=== PATIENT | male | born 1990 | race Caucasian/White ===

== ENCOUNTER 2016-11-12 11:11 | Emergency (ER) | payer SELFPAY ==
--- NOTE | 2016-11-12 11:23 | ERNOTE ---
Integumentary HPI - Narrative Date of Service: 11/12/16 - General Presenting Symptoms: insect bite Time Seen by Provider: 11/12/16 11:14 Source: patient Exam Limitations: no limitations - Immun/Allergies/Home Medications Allergies/Adverse Reactions: Allergies Allergy/AdvReac Type Severity Reaction Status Date / Time No Known Allergies Allergy Verified 08/23/12 08:24 Home Medications: HOME MEDICATIONS Sulfamethoxazole/Trimethoprim [Bactrim Ds] 1 tab PO BID #28 tab 11/12/16 [Last Taken Unknown] - History of Present Illness Narrative: Pt. comes in with c/o insect bites to L inner arm for two days. Pt. states that wound is getting more red and is painful. Pt. states that he took Benadryl for this without relief. Pt. denies any fevers, SOB, CP, NVD, numbness or tingling. Review of Systems - Review of Systems Constitutional: Present: no symptoms reported. Absent: recent illness, fever, chills, weakness, fatigue, malaise EYE: Present: no symptoms reported ENT: Present: no symptoms reported Respiratory: Present: no symptoms reported. Absent: shortness of breath, cough , wheezing Cardiology: Present: no symptoms reported. Absent: chest pain, palpitations, edema Gastrointestinal/Abdominal: Present: no symptoms reported. Absent: nausea, vomiting, diarrhea Genitourinary: Present: no symptoms reported Musculoskeletal: Present: no symptoms reported. Absent: back pain, joint pain Skin: Present: other - two insect bites inner anticubital space Neurological: Present: no symptoms reported. Absent: headache, dizziness/light- headedness, numbness, tingling All Other Systems: All systems neg except as marked - Patient's Past Medical History Patient History - Medical: No pertinent hx Physical Exam - Physical Exam General Appearance: Present: wd/wn, alert, no apparent distress Head Exam: Present: normal inspection, no evidence of injury Eye Exam: Normal inspection: bilateral Ears, Nose, Throat: Present: normal ENT inspection. Absent: pharyngeal swelling , tonsillar swelling Neck: Present: normal inspection, nontender. Absent: lymphadenopathy (R), lymphadenopathy (L) Respiratory: Present: no respiratory distress, normal breath sounds, no accessory muscle use, chest nontender, lungs clear Cardiovascular/Chest: Present: regular rate, rhythm, no murmur, normal peripheral pulses Extremity Exam: Present: normal range of motion, other - L anticubital space with erythema and edema surrounding Neurological Exam: Present: alert, oriented, normal mood/affect, no motor/ sensory deficits Skin Exam: Present: normal color, warm/dry, other - see above. Absent: pallor, skin rash ED Progress - Vital Signs Patient's Vital Signs:: I have reviewed the patient's vital signs. Departure Clinical Impression: Brown recluse spider bite Qualifiers: Encounter type: initial encounter Injury intent: accidental or unintentional Qualified Code(s): T63.331A - Toxic effect of venom of brown trevorluse spider, accidental (unintentional), initial encounter - Departure Disposition: Home self-care Condition: Good Instructions: Brown Recluse Spider Bite, [id number] Additional Instructions: Please follow up with primary provider in 2-3 days if not improved. Prescriptions: Sulfamethoxazole/Trimethoprim [Bactrim Ds] 1 tab PO BID #28 tab
[2016-11-12 11:53] VITALS: BP 140/84
== END 2016-11-12 11:48 | disposition home or self-care (01) ==
LOC: ER 11:11
DX: T63.331A Toxic effect of venom of brown recluse spider, accidental (unintentional), initial encounter (principal)

== ENCOUNTER 2016-11-13 13:36 | Emergency (ER) | payer SELFPAY ==
[2016-11-13 13:53] VITALS: BP 163/84
--- NOTE | 2016-11-13 14:16 | ERNOTE ---
Integumentary HPI - Narrative Date of Service: 11/13/16 - General Presenting Symptoms: insect bite Time Seen by Provider: 11/13/16 13:49 Source: patient Exam Limitations: no limitations - Immun/Allergies/Home Medications Immunizations: IMMUNIZATION HX Immunizations Up to Date Yes History of Influenza Vaccine No Allergies/Adverse Reactions: Allergies Allergy/AdvReac Type Severity Reaction Status Date / Time No Known Allergies Allergy Verified 11/13/16 13:54 Home Medications: HOME MEDICATIONS Sulfamethoxazole/Trimethoprim [Bactrim Ds] 1 tab PO BID #28 tab 11/12/16 [Last Taken Unknown] - History of Present Illness Narrative: Seen yesterday in ED for "insect bite" (?). Evaluated and given treatment for home. Says the swelling has not gone down and continues to hurt with some redness. Has been taking medicine as directed. When questioned about elevation he has not been consistently complying. No fever, chills, motor dysfunction. Review of Systems - Review of Systems Musculoskeletal: Present: muscle pain, muscle stiffness All Other Systems: All systems neg except as marked - Patient's Past Medical History Patient History - Medical: No pertinent hx Patient History - Cardiac/Respiratory: No pertinent hx Patient History - Cancer: No Hx of Cancer Patient History - Surgical Procedures: Colonoscopy - Social History Smoking Status: Current every day smoker Have you smoked in the past 12 months: Yes Do you dip or chew tobacco: No - Immunizations Immunizations Up to Date: Yes History of Influenza Vaccine: No Physical Exam - Physical Exam General Appearance: Present: wd/wn, alert, no apparent distress Eye Exam: PERRL: bilateral, EOMI: bilateral Ears, Nose, Throat: Present: normal ENT inspection Neck: Present: normal inspection, nontender Respiratory: Present: no respiratory distress, normal breath sounds Cardiovascular/Chest: Present: regular rate, rhythm, no murmur Gastrointestinal/Abdominal: Present: nontender, soft Extremity Exam: Present: other - Left arm with 1+ swelling around elbow with two small scabbed punctate lesions on volar surgace. Non-tender ED Progress - Vital Signs Vital Signs: Vital Signs 11/13/16 13:50 Temperature 37.5 C Pulse Rate 70 Respiratory 18 Rate Blood Pressure 163/84 O2 Sat by Pulse 100 Oximetry - Progress/Reassessment Chief Complaint: Insect Bite Plan - Plan Plan: Advised to continue treatment as prescribed yesterday. Continuously elevate arm for 48 hours. Follow up with PCP Departure Clinical Impression: Insect bite - Departure Disposition: Home self-care Condition: Good Instructions: Insect Bite Additional Instructions: Take ibuprofen 600 mg alternating with tylenol 650 mg every 3 hours. Continuously elevate left arm (wrist above elbow, elbow above shoulder) for 48 hours. Follow up with PCP in 48-72 hours.
== END 2016-11-13 14:21 | disposition home or self-care (01) ==
LOC: ER 13:36
DX: S40.862A Insect bite (nonvenomous) of left upper arm, initial encounter (principal); W57.XXXA Bitten or stung by nonvenomous insect and other nonvenomous arthropods, initial encounter